=== PATIENT | female | born 1935 | race Caucasian/White ===

== ENCOUNTER 2017-01-21 12:51 | Emergency (ER) | payer OTHER ==
[~2017-01-21] VITALS: Ht 167.6 cm; Wt 72.6 kg
[2017-01-21] MEDS ORDERED: CHILDREN'S ASPI81 M1 PO (14:25)
[2017-01-21] MEDS ORDERED: LEVOTHYROXIN0.175 MG PO (14:25)
[2017-01-21] MEDS ORDERED: HYDROCHLOROTH12.5 M1 PO (14:25)
[2017-01-21] MEDS ORDERED: KEFLEX500 MG PO (14:56)
[2017-01-21 15:10] VITALS: BP 168/71
== END 2017-01-21 15:12 | disposition home or self-care (01) ==
LOC: ER 12:51
DX: S81.811A Laceration without foreign body, right lower leg, initial encounter (principal); I10 Essential (primary) hypertension; M19.90 Unspecified osteoarthritis, unspecified site; Z90.710 Acquired absence of both cervix and uterus; E89.0 Postprocedural hypothyroidism; Z88.8 Allergy status to other drugs, medicaments and biological substances; W26.8XXA Contact with other sharp object(s), not elsewhere classified, initial encounter; Y93.H2 Activity, gardening and landscaping; Y92.89 Other specified places as the place of occurrence of the external cause; Y99.8 Other external cause status